=== PATIENT | male | born 1975 | race Caucasian/White ===

== ENCOUNTER → 2019-01-05 09:37 | Outpatient (CLI) | payer MEDICARE, SELFPAY ==
--- NOTE | 2019-01-05 09:40 | MR_ITS ---
MR lumbar spine wo con, MR 3-d myelogram/MRCP HISTORY: Low back pain. Bilateral leg and buttock pain. RT leg numbness and tingling. ITS.REASON: back pain, leg pain/paresthesia ORDERING PHYSICIAN: Karlie Trujillo MD PATIENT AGE: 43 years Comparison: MRI 12/25/15 TECHNIQUE: Standard multiplanar multiecho sequences are performed without contrast. 3-D MIP and myelographic images are also rendered and reviewed FINDINGS: There is normal alignment. The spinal cord ends that the T12-L1 level. L1-L2: Unremarkable. L2-L3: Unremarkable. L3-L4: Minimal bulging disc with mild facet and ligamentum flavum hypertrophy. L4-5: There is a small central disc herniation with minimal superior extrusion causing moderate anterior compression upon the thecal sac. The disc abuts the anteromedial aspect of both L5 nerve roots and is causing narrowing of the canal anteriorly. This was present on previous study and may be very slightly larger as seen on axial images. L5-S1: Mild degenerative disc disease with tiny central disc protrusion abutting the anteromedial aspect of the right S1 nerve root. IMPRESSION: 1. There is a small central disc herniation at L4-L5 with minimal superior extrusion causing mild anterior compression upon the thecal sac. The disc abuts the anteromedial aspect of both L5 nerve roots and is causing narrowing of the canal anteriorly. This was present on previous study and may be very slightly larger as seen on today's axial images. 2. Mild degenerative disc disease at L5-S1 with tiny central disc protrusion not readily apparent on the previous study abutting the anteromedial aspect of the right S1 nerve root.
== END ==
PROVIDERS: PCP Internal Medicine; Visit Provider Specialist
DX: M54.42 Lumbago with sciatica, left side (principal); R20.2 Paresthesia of skin
CPT/HCPCS: 72148; 76376

== ENCOUNTER → 2021-04-16 15:27 | Outpatient (CLI) | payer MEDICARE, SELFPAY ==
--- NOTE | 2021-04-16 16:00 | ECG_ITS ---
APPROVED REPORT Exam: Resting ECG HR:54 bpm ECG Measurements Heart Rate 54 AXES IL 148 P 24 QRSd 110 QRS 71 QT 420 T 17 QTc 398 Conclusion Sinus bradycardia Otherwise normal ECG Electronically signed by : German Ivy, 04/16/2021 21:16:59
[2021-04-16 17:03] LABS: Thyroid Stimulating Hormone 2.88 uIU/mL (0.465-4.68)
[2021-04-16 17:10] LABS: Free T4 (Free Thyroxine) 1.08 ng/dl (0.78-2.19)
[2021-04-18 09:06] LABS: FSH 1.6 mIU/mL (1.5-12.4); Prolactin 14.8 ng/mL (4.0-15.2)
[2021-04-18 09:13] LABS: LH 1.6 mIU/mL (1.7-8.6)
[2021-04-22 13:16] LABS: Testosterone,Free 2.9 pg/mL (6.8-21.5)
== END ==
PROVIDERS: Visit Provider Internal Medicine
DX: E03.9 Hypothyroidism, unspecified (principal); E29.1 Testicular hypofunction; Z82.49 Family history of ischemic heart disease and other diseases of the circulatory system
CPT/HCPCS: 36415; 83001; 83002; 84146; 84402; 84439; 84443; 93005

== ENCOUNTER → 2021-09-25 14:31 | Outpatient (CLI) | payer MEDICARE, SELFPAY ==
--- NOTE | 2021-09-25 14:35 | MR_ITS ---
PROCEDURE: MR CERVICAL SPINE WO CON CLINICAL INDICATION: RADICULOPATHY, CERVICALGIA COMPARISON: No exams were available for comparison TECHNIQUE: Standard multiplanar multiecho sequences are performed without contrast. 3-D MIP and myelographic images are also rendered and reviewed FINDINGS: There is normal alignment. The craniocervical junction has an unremarkable appearance. C2-C3: Unremarkable. C3-C4: Unremarkable. C4-C5: Mild left-sided foraminal narrowing from uncovertebral hypertrophy. C5-C6: Mild degenerative disc disease. Mild bulging disc. Small left paracentral/foraminal disc protrusion/disc osteophyte complex causing left lateral recess narrowing and moderate to severe left-sided foraminal narrowing. This is causing minimal impingement upon the anterior left aspect of the cord. C7-T1: Unremarkable. IMPRESSION: 1. C4-C5: Mild left-sided foraminal narrowing from uncovertebral hypertrophy. 2. C5-C6: Mild degenerative disc disease. Mild bulging disc. Small left paracentral/foraminal disc protrusion/disc osteophyte complex causing left lateral recess narrowing and moderate to severe left-sided foraminal narrowing. This is causing minimal impingement upon the anterior left aspect of the cord. Dictated by: Blade Sotelo MD 09/26/2021 15:41 Blade Sotelo MD in [place] 09/26/2021 15:41
--- NOTE | 2021-09-25 14:35 | MR_ITS ---
PROCEDURE: MR LUMBAR SPINE WO CON CLINICAL INDICATION: RADICULOPATHY, CERVICALGIA COMPARISON: MR SPLUMBWO MR lumbar spine wo con from 01/05/2019 TECHNIQUE: Standard multiplanar multiecho sequences are performed without contrast. 3-D MIP and myelographic images are also rendered and reviewed FINDINGS: L1-L2 and L2-L3 have an unremarkable appearance aside from some mild facet and ligamentum hypertrophy. L3-L4: Mild bulging disc with facet and ligamentum hypertrophic change not significantly changed. L4-5: Mild bulging disc. Previously noted central disc herniation L5-S1: Mild degenerative disc disease with minimal bulging disc. Facet and ligamentum hypertrophic changes are present. The previously noted central disc protrusion no longer apparent. No extruded herniated disc or bony canal stenosis. Is no longer apparent IMPRESSION: Mild lumbar spondylosis. Please see above for detailed description at each level. No extruded herniated disc or bony canal stenosis. Dictated by: Blade Sotelo MD 09/26/2021 15:06 Blade Sotelo MD in [place] 09/26/2021 15:06
== END ==
PROVIDERS: PCP Internal Medicine
DX: M54.2 Cervicalgia (principal); M54.16 Radiculopathy, lumbar region
CPT/HCPCS: 72141; 72148; 76376

== ENCOUNTER 2022-02-03 17:25 | Emergency (ER) | payer MEDICARE, SELFPAY ==
[2022-02-03 17:27] VITALS: BP 141/72; PULSE 91; RESP 20; TEMP 36.8; O2SAT 100; BMI 30.9
--- NOTE | 2022-02-03 18:07 | PC.NURSE ---
ED MD at
--- NOTE | 2022-02-03 18:08 | XR_ITS ---
PROCEDURE INFORMATION: Exam: XR Right Tibia and Fibula Exam date and time: 02/03/2022 6:15 PM Age: 46 years old Clinical indication: Swelling, leg or foot; Additional info: Trauma TECHNIQUE: Imaging protocol: XR Right tibia and fibula. Views: 2 views. COMPARISON: No relevant prior studies available. FINDINGS: Bones/joints: No acute fracture or dislocation. Soft tissues: Moderate soft tissue edema around the calf and ankle. IMPRESSION: 1. No acute fracture or dislocation. 2. Moderate soft tissue edema around the calf and ankle.
--- NOTE | 2022-02-03 18:17 | PC.NURSE ---
xray at bedside
--- NOTE | 2022-02-03 18:33 | [facility].EDEXTP ---
ED Disposition Clinical Impression: Cellulitis of right leg Disposition: Home, Self-Care Condition on Discharge: Good Instructions: DI for Cellulitis -- Adult Prescriptions: cephALEXin [Cephalexin 500mg Tab] 500 mg PO Q6H #40 tab Prescription Printed Doxycycline Monohydrate [Doxycycline Geary 100mg Tab] 100 mg PO Q12 #20 tab Prescription Printed Referrals: Reed Swenson [Primary Care Provider] - - Critical Care Critical Care Time: No Attestation: On 02/03/22, the high probability of a clinically significant, sudden or life threatening deterioration of the following system(s) required my full and direct attention, intervention and personal management. The time I documented below is in addition to time spent performing reported procedures but includes the following listed in this critical care notation. Medical Decision Making - Medical Records Medical records reviewed: Yes: I reviewed the patient's medical records. - Eliseo Inquiry Pt receiving controlled substance: No Vital Signs: 02/03/22 17:27 Temperature 98.3 F Temperature Source Oral Pulse Rate [Left Radial] 91 H Respiratory Rate 20 Blood Pressure [Right Arm] 141/72 H Blood Pressure Mean [Right Arm] 95 Blood Pressure Source [Right Arm] Automatic Cuff Blood Pressure Position [Right Arm] Sitting 02 Sat by Pulse Oximetry 100 Oxygen Delivery Method Room Air Orders (Tests/Meds): ED MEDICATIONS Discontinued Medications Generic Name Dose Route Start Last Admin Trade Name Freq PRN Reason Stop Dose Admin Ibuprofen 800 mg 02/03/22 18:08 02/03/22 18:15 Ibuprofen 400 Mg Tablet PO 02/03/22 18:09 800 mg ONCE ONE Administration ORDERS Category Date Time Status CA venous doppler LE RT Stat Y 02/03/22 18:08 Ordered - Radiology Data #1 Image(s): Tib/Fib Image Reviewed: Yes I reviewed the patient's radiology results, Yes I reviewed the patient's radiology image, Yes I have reviewed radiologist's interpretation IMPRESSION: 1. No acute fracture or dislocation. 2. Moderate soft tissue edema around the calf and ankle. - Reevaluation(s) Time: 18:45 Reevaluation #1: X-ray is unremarkable. I was informed that ultrasounds not currently available at this time. I did have discussion with the patient. I have arranged for an outpatient ultrasound tomorrow morning. I would like to provide 1 dose of Lovenox and with the plan for anticoagulation. However the patient states that he does not want to do this at this time. Patient will be treated for cellulitis as well. We discharged with a short course of antibiotics. Needs to return tomorrow for his outpatient ultrasound. Again repeat examination does not show any evidence of compartment syndrome. given strict return precautions. Verbalized understanding. Medical Decision Narrative: This is a 46-year-old male presenting with some swelling and pain to the right lower leg. I do believe the patient likely had a traumatic contusion at the time of the injury. I am concerned for possible DVT versus cellulitis versus dependent edema. Work-up initiated. Extremity Problem HPI - General Chief complaint: Extremity Injury, Lower Stated complaint: AO 01/28 injured R Leg Time Seen by Provider: 02/03/22 17:35 Mode of Arrival: Wheelchair Limitations: No Limitations Description of Symptoms (Recalled from ER Triage Doc. by RN): c/o right leg pain, states that he fell W/Th last week by tripping over a chair. WAs seen in his local ER and x-ray were completed and told his had a bad contusion but states the leg has swollen since he was seen - History of Present Illness HPI Narrative: 46-year-old male presented to the emergency department with some right lower leg pain. The patient states that last week Thursday he tripped and fell over a chair in his house. He had some contusions and abrasions to his right leg. Went to an outlying emergency department at that time was diagnosed
--- NOTE | 2022-02-03 18:41 | PC.NURSE ---
ED MD at for update on POC
[2022-02-03 18:59] VITALS: BP 134/90; PULSE 84; RESP 18; TEMP 36.8; O2SAT 98
== END 2022-02-03 18:59 | disposition home or self-care (01) ==
PROVIDERS: Emergency Provider Emergency Medicine; PCP Internal Medicine
DX: L03.115 Cellulitis of right lower limb (principal); M79.604 Pain in right leg; I10 Essential (primary) hypertension; K21.9 Gastro-esophageal reflux disease without esophagitis; K75.9 Inflammatory liver disease, unspecified; K44.9 Diaphragmatic hernia without obstruction or gangrene; F41.9 Anxiety disorder, unspecified; M79.7 Fibromyalgia; Z88.2 Allergy status to sulfonamides; Z87.891 Personal history of nicotine dependence; Z87.442 Personal history of urinary calculi; W18.09XA Striking against other object with subsequent fall, initial encounter
CPT/HCPCS: 73590; 99283

== ENCOUNTER 2024-04-07 17:18 | Outpatient (CLI) | payer MEDICARE, SELFPAY ==
--- NOTE | 2024-04-07 | XR_ITS ---
PROCEDURE INFORMATION: Exam: XR Left Hip Exam date and time: 04/07/2024 5:18 PM Age: 49 years old Clinical indication: Hip pain; Left hip; Additional info: Pain in left hip TECHNIQUE: Imaging protocol: Radiologic exam of the left hip. Views: 2 or 3 views hip with pelvis when performed. COMPARISON: No prior relevant imaging. FINDINGS: Bones/joints: No acute fracture or dislocation. Mild degenerative changes of both hips. Soft tissues: Unremarkable. IMPRESSION: No acute findings.
== END 2024-04-07 23:59 | disposition home or self-care (01) ==
LOC: RAD 17:20
PROVIDERS: PCP Internal Medicine; Visit Provider Pain Medicine Interventional Pain Medicine
DX: M25.552 Pain in left hip (principal)
CPT/HCPCS: 73502